=== PATIENT | male | born 1985 | race Caucasian/White ===

== ENCOUNTER 2021-04-24 17:49 | Emergency (ER) | payer BC ==
[~2021-04-24 17:49] MED LIST: DELSYM30 MG/5 ML PO; IBUPROFEN800 MG PO; NORFLEX 100 MG100 MG PO; PREDNISONE 50 M50 MG PO; PROTONIX40 MG PO
[2021-04-24 19:53] LABS: HEMOGLOBIN 15.6 gm/dl (14.0-17.5); RED BLOOD COUNT 4.8 M/UL (4.20-5.50); WHITE BLOOD COUNT 3.9 K/UL (4.5-11.0)
[2021-04-24 20:23] LABS: BUN/CREATININE RATIO 14 (0-10)
[2021-04-24 21:46] LABS: BORDETELLA PARAPERTUSSIS Not Detected (Not Detectd); BORDETELLA PERTUSSIS Not Detected (Not Detectd); CHLAMYDIA PNEUMONIAE Not Detected (Not Detectd); CORONAVIRUS HKU1 Not Detected (Not Detectd); CORONAVIRUS NL63 Not Detected (Not Detectd); CORONAVIRUS OC43 Not Detected (Not Detectd); CORONOAVIRUS 229E Not Detected (Not Detectd); HUMAN METAPNEUMOVIRUS Not Detected (Not Detectd); HUMAN RHINOVIRUS/ENTEROVIRUS Not Detected (Not Detectd); INFLUENZA A Not Detected (Not Detectd); INFLUENZA B Not Detected (Not Detectd); MYCOPLASMA PNEUMONIAE Not Detected (Not Detectd); PARAINFLUENZA VIRUS 1 Not Detected (Not Detectd); PARAINFLUENZA VIRUS 2 Not Detected (Not Detectd); PARAINFLUENZA VIRUS 3 Not Detected (Not Detectd); PARAINFLUENZA VIRUS 4 Not Detected (Not Detectd); RESPIRATORY SYNCYTIAL VIRUS Not Detected (Not Detectd)
[2021-04-24 23:44] LABS: SARS-CoV-2 NOT DETECTED (Not Detectd)
[2021-04-26 11:38] LABS: ACINETOBACTER BAUMANNII Not Detected (Negative); CANDIDA ALBICANS Not Detected (Negative); CANDIDA KRUSEI Not Detected (Negative); CANDIDA TROPICALIS Not Detected (Negative); ENTEROCOCCUS Not Detected (Negative); ESCHERICHIA COLI Not Detected (Negative); HAEMOPHILUS INFLUENZAE Not Detected (Negative); KLEBSIELLA OXYTOCA Not Detected (Negative); KLEBSIELLA PNEUMONIAE Not Detected (Negative); KPC-CARBAPENEM-RESISTANCE GENE Not Detected (Negative); PROTEUS Not Detected (Negative); PSEUDOMONAS AERUGINOSA Not Detected (Negative); SERRATIA MARCESANS Not Detected (Negative); STAPHYLOCOCCUS AUREUS Not Detected (Negative); STREP AGALACTIAE (GROUP B) Not Detected (Negative); STREP PYOGENES (GROUP A) Not Detected (Negative); STREPTOCOCCUS Not Detected (Negative); mecA (METHICILLIN RESIST GENE Not Detected (Negative); vanA/B (VANCOMYCIN RESIST GENE Not Detected (Negative)
[2021-04-26 12:52] LABS: STAPHYLOCOCCUS DETECTED (Negative)
[2021-04-26 19:10] LABS: CHLAMYDIA TRACHOMATIS, NAA Negative (Negative); NEISSERIA GONORRHOEAE, NAA Negative (Negative)
== END 2021-04-24 23:55 | disposition home or self-care (01) ==
LOC: ER1 17:49
PROVIDERS: Physician Assistant
DX: E86.0 Dehydration (principal); R50.9 Fever, unspecified; I10 Essential (primary) hypertension; Z20.822 Contact with and (suspected) exposure to COVID-19
CPT/HCPCS: 0240U; 71045; 80053; 81001; 83605; 85025; 85652; 86140; 87040; 87077; 87081; 87086; 87150; 87186; 87633; 87880; 99283

== ENCOUNTER 2021-04-26 12:40 | Emergency (ER) | payer BC ==
[2021-04-26 13:56] LABS: BUN/CREATININE RATIO 13 (0-10)
[2021-04-26 13:56] LABS: HEMOGLOBIN 14.5 gm/dl (14.0-17.5); RED BLOOD COUNT 4.51 M/UL (4.20-5.50); WHITE BLOOD COUNT 3.8 K/UL (4.5-11.0)
[2021-04-26] MEDS ORDERED: DOXYCYCLINE MO100 MG PO (18:09)
[2021-05-02 00:07] LABS: A. PHAGOCYTOPHILUM PCR Negative (Negative); EHRLICHIA CHAFFEENSIS PCR Negative (Negative)
== END 2021-04-26 18:30 | disposition home or self-care (01) ==
LOC: ER1 12:40
PROVIDERS: Nurse Practitioner
DX: A93.8 Other specified arthropod-borne viral fevers (principal); D69.6 Thrombocytopenia, unspecified; R94.5 Abnormal results of liver function studies; I10 Essential (primary) hypertension; Z79.899 Other long term (current) drug therapy; Z20.822 Contact with and (suspected) exposure to COVID-19
CPT/HCPCS: 0240U; 70450; 80053; 80307; 81001; 83605; 85025; 86140; 86757; 87040; 87798; 93005; 96374; 96375; 99284; J1885; J2405